=== PATIENT | female | born 1965 | race Caucasian/White ===

== ENCOUNTER 2016-06-25 19:56 | Emergency (ER) | payer MEDICARE, MEDICAID ==
--- NOTE | ~2016-06-25 | ER ---
PATIENT'S NAME: MAGALY JORGE [facility] AGE: 51 Y [address] ROOM: [place] [address] LOCATION: ED ADMIT DATE: 06/25/2016 ER/Outpatient Report DISCHARGE DATE: 06/25/2016 FAMILY PHYSICIAN: Pati Galo MD ATTENDING PHYSICIAN: Jose Levi CHIEF COMPLAINT: Cough and wheezing. HISTORY OF PRESENTING ILLNESS: The patient has a history of shortness of breath and difficulty breathing that started earlier today. The patient states that she has a history of asthma and has taken multiple breathing treatments with her inhaler that are not improving. She states that she always wheezes a little bit at baseline. She thinks it is just not getting better. She is exposed to secondhand smoke at home, but does not smoke herself. She denies a history of COPD. No recent history of cough, fevers, or chills, just wheezing that is getting worse today. She has a few psychiatric conditions, but denies any other medical conditions. PAST MEDICAL HISTORY: Documented by the record and reviewed by me. SOCIAL HISTORY: Documented by the record and reviewed by me. MEDICATIONS: Documented by the record and reviewed by me. ALLERGIES: DOCUMENTED BY THE RECORD AND REVIEWED BY ME. REVIEW OF SYSTEMS: All systems are reviewed and negative except as noted in the HPI. PHYSICAL EXAMINATION: VITAL SIGNS: Blood pressure is 129/64, pulse 119, respiratory rate is 22, temperature 98.6, SpO2 is 94% on room air. Pain is 0/10. GENERAL: An age appropriate female, in no obvious pain and very mild distress with outward signs of wheezing. NEUROLOGIC: Awake and alert. GCS is 15. The patient's affect is flat. HEENT: Normocephalic, atraumatic. Eyes are PERRL. Oropharynx is clear. NECK: Supple. Trachea is midline. No cervical adenopathy. No tonsillar exudates. CHEST: Heart is tachycardic with no murmurs. PATIENT'S NAME: MAGALY JORGE [facility] AGE: 51 Y [address] ROOM: [place] [address] LOCATION: ED ADMIT DATE: 06/25/2016 ER/Outpatient Report DISCHARGE DATE: 06/25/2016 FAMILY PHYSICIAN: Pati Galo MD ATTENDING PHYSICIAN: Jose Levi LUNGS: Diffusely wheezy in all lung becerra with good air movement. No rhonchi or rales. BACK: Nontender to palpation throughout. No CVA tenderness. ABDOMEN: Soft, nontender, and nondistended. No rebound or guarding. EXTREMITIES: Warm and well perfused. She has no other focal deficits. SKIN: Warm, dry, and intact. EXTREMITIES: Normal to inspection. LABORATORY DATA AND X-RAYS: Chest x-ray was obtained and normal per my read. No other labs were obtained. IMPRESSION: Asthma exacerbation, mild without hypoxia. EMERGENCY DEPARTMENT COURSE: The patient was seen and evaluated. She was given ipratropium in addition to the Xopenex for a total of 4 nebulizer treatments. She had marked improvement in her wheezing and was feeling much better. Her repeat pulmonary exam showed improvement in her wheezing and she felt like she was at her baseline. Air entry continued to be good bilateral. No evidence of pneumonia. We will give her a short prescription for prednisone burst. Follow up with PCP as needed. Return immediately if worse. All questions were answered and the patient was discharged. MD COLEEN FONG/camronl /[id number] d: 06/27/16 0242 t: 07/07/16 0844, OUTPATIENT REPORT
== END 2016-06-25 21:10 | disposition disaster alternative care site (69) ==
LOC: GMED 19:56
DX: J45.901 Unspecified asthma with (acute) exacerbation (principal); Z91.012 Allergy to eggs
CPT/HCPCS: J7512; J7612